=== PATIENT | male | born 1990 | race Caucasian/White ===

== ENCOUNTER 2018-06-21 09:46 | Emergency (ER) | payer BC ==
[2018-06-21 10:31] LABS: BILIRUBIN,URINE NEGATIVE (NEGATIVE); GLUCOSE, URINE (UA) NEGATIVE (NEGATIVE); KETONES,URINE (UA) NEGATIVE (NEGATIVE); LEUKOCYTE ESTERASE, URINE NEGATIVE (NEGATIVE); NITRITE,URINE NEGATIVE (NEGATIVE); OCCULT BLOOD,URINE MODERATE (NEGATIVE); PH,URINE 6.5 PH (5.0-7.5); PROTEIN,URINE TRACE mg/dL (NEGATIVE); UROBILINOGEN,URINE 0.2 (NORMAL) E.U./dL (NORMAL)
[2018-06-21 10:32] LABS: CLARITY,URINE CLEAR (CLEAR)
[2018-06-21 10:41] LABS: BACTERIA,URINE None Seen /HPF (None Seen); RBC,URINE 0-5 /HPF (0-5); SQUAMOUS EPITHELIAL CELL,UR RARE Squamous (<= Few)
[2018-06-21] MEDS ORDERED: SODIUM CHLORIDE 0.9% 1,000 ML IV ONE (10:54)
[2018-06-21] MEDS ORDERED: IOPAMIDOL-300 100 ML VIAL ONE (11:24)
[2018-06-21 11:27] LABS: BASOPHILS % (AUTO) 0.5 %; EOSINOPHILS # (AUTO) 0.2 10^3/uL (0.0-0.7); EOSINOPHILS % (AUTO) 2.8 %; HGB - HEMOGLOBIN 14.4 g/dL (14.0-18.0); LYMPHOCYTES % (AUTO) 13.7 %; MEAN CORPUSCULAR HEMOGLOBIN 34.9 pg (27.0-31.0); MEAN CORPUSCULAR HGB CONC 36.2 g/dL (32.0-36.0); MEAN CORPUSCULAR VOLUME 96.5 fL (80.0-94.0); MEAN PLATELET VOLUME 7.8 fL (7.4-11.4); MONOCYTES # (AUTO) 0.6 10^3/uL (0.0-1.0); NEUTROPHILS # (AUTO) 5.6 10^3/uL (1.5-6.6); PLT - PLATELET COUNT 177 10^3/uL (130-450); RED BLOOD COUNT 4.13 10^6/uL (4.70-6.10); RED CELL DISTRIBUTION WIDTH 12.7 % (12.0-15.0); WHITE BLOOD COUNT 7.5 x10^3/uL (4.8-10.8)
[2018-06-21 11:39] LABS: ALBUMIN 4.1 g/dL (3.2-5.5); ALBUMIN/GLOBULIN RATIO 1.6 (1.0-2.2); BILIRUBIN,TOTAL 0.8 mg/dL (0.2-1.0); CALCIUM 8.7 mg/dL (8.5-10.3); CREATININE 1.4 mg/dL (0.6-1.2); TOTAL PROTEIN 6.6 g/dL (6.7-8.2)
--- NOTE | 2018-06-21 12:29 | CT Report ---
Reason: RLQ PAIN, DIARRHEA, NAUSEA Procedure Date: 06/21/2018 Accession Number: [id number] / [id number] Procedure: CT - Abdomen/Pelvis W/ CPT Code: FULL RESULT: EXAM: CT ABDOMEN AND PELVIS EXAM DATE: 06/21/2018 12:01 PM. CLINICAL HISTORY: Right lower quadrant pain, diarrhea, nausea. COMPARISONS: None. TECHNIQUE: Routine helical CT imaging was performed through the abdomen and pelvis. IV contrast: ISOVUE 300 100 mL. Enteric contrast: No. Reconstructions: Coronal and sagittal. In accordance with CT protocol optimization, one or more of the following dose reduction techniques were utilized for this exam: automated exposure control, adjustment of mA and/or KV based on patient size, or use of iterative reconstructive technique. FINDINGS: Lung Bases: Unremarkable. Liver: Normal. No masses. Gallbladder/Bile Ducts: Unremarkable. Spleen: Normal. Pancreas: Normal. Adrenal Glands: Normal. 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 The kidneys are otherwise unremarkable. Peritoneal Cavity/Bowel: Normal. No free fluid, free air or adenopathy. No masses or acute inflammatory process. The appendix is well visualized and normal. Pelvic Organs: Normal. The bladder and visualized pelvic organs are within normal limits. Vasculature: No aneurysms or other significant abnormality. Bones: No significant abnormality. Other: None. IMPRESSION: No appendicitis or other right lower quadrant acute abnormality. RADIA
[2018-06-21] MEDS ORDERED: KETOROLAC 60 MG/2 ML VIAL IVP STA (12:48)
--- NOTE | 2018-06-21 14:09 | ED Physician Documentation ---
PD HPI ABD PAIN - Stated complaint Stated Complaint: ABD PX - Chief complaint Chief Complaint: Abd Pain - History obtained from History obtained from: Patient - History of Present Illness Timing - onset: How many days ago Timing - duration: Days (2) Timing - details: Gradual onset, Still present, Intermittant Pain level max: 6 Pain level now: 0 Quality: Cramping Location: RLQ Radiation: Other (NO RADIATION) Improved by: Other (NOTHING) Associated symptoms: Diarrhea. No: Fever, Nausea, Vomiting, Constipation, Melena, Hematochezia, Dysuria, Hematuria, Chest pain, Loss of appetite (Pt from out of town for a local job, here with complain of diarrhea with abdominal cramping the past couple of days. Had [place] food yesterday and his pain worsened and watery diarrhea 4 times.), Weight loss Review of Systems Ten Systems: 10 systems reviewed and negative Constitutional: denies: Fever, Chills, Weight Loss Cardiac: denies: Chest pain / pressure Respiratory: denies: Dyspnea, Cough GI: reports: Abdominal Pain, Diarrhea. 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) - Present Medications Home Medications: Ambulatory Orders Medication Instructions Recorded Confirmed Dicyclomine [Bentyl] 10 mg PO QID PRN #20 capsule 06/21/18 - Allergies Allergies/Adverse Reactions: Allergies Allergy/AdvReac Type Severity Reaction Status Date / Time erythromycin base Allergy Hives Verified 06/21/18 10:04 - Social History Does the pt smoke?: Yes Smoking Status: Current every day smoker PD ED PE NORMAL - Vitals Vital signs reviewed: Yes - General General: Alert and oriented X 3, No acute distress, Well developed/nourished - HEENT HEENT: Moist mucous membranes, Other (nonicteric sclera) - Neck Neck: Supple, no meningeal sign - Cardiac Cardiac: RRR, No murmur - Respiratory Respiratory: No respiratory distress, Clear bilaterally - Abdomen Abdomen: Normal bowel sounds, Soft, Non distended, Other (mildy tender to RLQ but without McBurney's sign) - Rectal Rectal: Deferred - Back Back: No CVA TTP, No spinal TTP - Derm Derm: Normal color, Warm and dry - Extremities Extremities: No deformity - Neuro Neuro: Alert and oriented X 3 - Psych Psych: Normal mood, Normal affect Results - Vitals Vitals: Vital Signs - 24 hr 06/21/18 06/21/18 10:01 12:21 Temperature 36.5 C Heart Rate 62 80 Respiratory 20 20 Rate Blood Pressure 148/98 H 126/79 O2 Saturation 98 99 Oxygen O2 Source Room air - Labs Labs: Laboratory Tests 06/21/18 06/21/18 06/21/18 10:08 11:10 11:10 WBC 7.5 RBC 4.13 L Hgb 14.4 Hct 39.9 L MCV 96.5 H MCH 34.9 H MCHC 36.2 H RDW 12.7 Plt Count 177 MPV 7.8 Neut # (Auto) 5.6 Lymph # (Auto) 1.0 L [place] # (Auto) 0.6 Eos # (Auto) 0.2 Baso # (Auto) 0.0 Absolute Nucleated RBC 0.01 Nucleated RBC % 0.1 Sodium 138 Potassium 3.6 Chloride 105 Carbon Dioxide 24 Anion Gap 9.0 BUN 16 Creatinine 1.4 H Estimated GFR (MDRD) 60 L Glucose 101 H Calcium 8.7 Total Bilirubin 0.8 AST 22 ALT 25 Alkaline Phosphatase 72 Total Protein 6.6 L Albumin 4.1 Globulin 2.5 Albumin/Globulin Ratio 1.6 Lipase 34 Urine Color YELLOW Urine Clarity CLEAR Urine pH 6.5 Ur Specific [place] <=1.005 Urine Protein TRACE Urine Glucose (UA) NEGATIVE Urine Ketones NEGATIVE Urine Occult Blood MODERATE H Urine Nitrite NEGATIVE Urine Bilirubin NEGATIVE Urine Urobilinogen 0.2 (NORMAL) Ur Leukocyte Esterase NEGATIVE Urine RBC 0-5 Urine WBC 0-3 Ur Squamous Epith Cells RARE Squamous Urine Bacteria None Seen Ur Microscopic Review INDICATED PD MEDICAL DECISION MAKING - ED course Complexity details: reviewed results, re-evaluated patient (1246 States as intermittent cramping. Will try Toradol. No N/V/D in the E.R. Will try Toradol. 1356 States pain is decreased.), considered differential (appendicitis, colitis, obstruction), d/w patient - Sepsis Event Vital Signs: Vital Signs - 24 hr 06/21/18 06/21/18 10:01 12:21 Temperature 36.5 C Heart Rate 62 80 Respiratory 20 20 Rate Blood Pressure 148/98 H 126/79 O2 Saturation 98 99 Oxygen O2 Source Room air Departure - Departure Disposition: 01 Home, Self Care Clinical Impression: Abdominal pain Qualifiers: Abdominal location: right lower quadrant Qualified Code(s): R10.31 - Right lower quadrant pain Diarrhea Qualifiers: Diarrhea type: unspecified type Qualified Code(s): R19.7 - Diarrhea, unspecified Condition: Good Instructions: ED Abdominal Pain Unkn Cause, ED Abdominal Pain Cause Unkn Male Ch Follow-Up: Joselito Caicedo MD [Primary Care Provider] - Within 3 Days Prescriptions: Dicyclomine [Bentyl] 10 mg PO QID PRN #20 capsule PRN Reason: Abdominal Pain Comments: CLEAR LIQUIDS TODAY - SMALL AMOUNTS BUT FREQUENTLY. ADVANCE TO B.R.A.T. DIET (BANANAS, RICE, APPLESAUCE, TOAST). IF TOLERATE ADVANCE TO BLAND DIET. AVOID FATTY, GREASY, SPICY FOODS, ALCOHOL. FOLLOW UP W/ YOUR PCP FOR REEVALUATION AND REFERRAL TO A G.I. DOCTOR NEEDED. IF WORSE RETURN TO THE E.R. Forms: Activity restrictions Discharge Date/Time: 06/21/18 14:30
[2018-06-21 14:19] VITALS: BP 127/85
[2018-06-21] MEDS ORDERED: IOPAMIDOL-300 100 ML VIAL IVP ONE (14:30)
== END 2018-06-21 14:30 | disposition home or self-care (01) ==
LOC: ED 09:46
DX: R10.31 Right lower quadrant pain (principal); R19.7 Diarrhea, unspecified; F17.200 Nicotine dependence, unspecified, uncomplicated
CPT/HCPCS: 36415; 74177; 80053; 81001; 83690; 85025; 96361; 96374; 99283; Q9967; 81003